=== PATIENT | female | born 1955 | race Caucasian/White ===

== ENCOUNTER → 2020-05-05 | Outpatient (CLI) | payer MEDICARE ==
[~2020-05-05] MED LIST: ATOR20TA58 PO; LEVO50TA5 PO; OMEP40CA45 PO; SERT25TA PO
== END | disposition home or self-care (01) ==
LOC: LAB 08:57
PROVIDERS: ATTEND Registered Nurse
DX: Z01.812 Encounter for preprocedural laboratory examination (principal); Z86.010 Personal history of colon polyps; Z20.828 Contact with and (suspected) exposure to other viral communicable diseases
CPT/HCPCS: U0003-CS

== ENCOUNTER → 2020-05-09 | Day surgery (SDC) | payer MEDICARE ==
[~2020-05-09] MED LIST changes: +IPRATRPIUM/ALBUTEROL 0.5/2.5MG 3 ML NEBU. NEB PRN; +IV RINGERS SOLUTION,LACTATED 1,000 ML IV SCH; +MIDAZOLAM HCL PF 2 MG/2 ML VIAL. IV ONE; +ONDANSETRON PF 4 MG/2 ML VIAL. IV PRN; +PROPOFOL 10,000 MCG/ML (20ML) VIAL IV ONE
[2020-05-09 09:48] VITALS: BP 132/72
--- NOTE | 2020-05-10 15:08 | PATHOLOGY ---
[facility] Accession Number: [id number] . 01 Material submitted: . colon - ASCENDING COLON POLYP. Modifiers: ascending . 02 Diagnosis: Colon biopsy, ascending colon polyp: - Hyperplastic polyp. ([facility] 05/10/2020) [facility] 05/10/2020 0954 Local . 02 Comment: There are no adenomatous changes or evidence of malignancy. ([facility] 05/10/2020) . 02 Electronically signed: . Parveen Isaacs MD, Pathologist NPI- [id number] . 01 Gross description: . Received in formalin labeled "Tyrone, Marjan, ascending colon polyp" is a bernal-brown soft tissue fragment measuring 0.6 x 0.3 x 0.1 cm. The specimen is submitted entirely in A1. ([facility]; 05/09/2020) [facility] 05/09/2020 1705 Local . 02 Pathologist provided ICD-10: K63.5 . 02 CPT . 371649 Specimen Comment: A courtesy copy of this report has been sent to [phone] Specimen Comment: [phone] Specimen Comment: Report sent to / DR ROSARIO Performed at: 01 [facility] [address], [place], [place] [id number] MD Glen Fuchs MD Phone: [phone] Performed at: 02 [facility] [place] [address] [place], [place] [id number] MD Parveen Isaacs MD Phone: [phone]
== END | disposition home or self-care (01) ==
LOC: SURG 07:37
PROVIDERS: ATTEND Emergency Medicine
DX: Z12.11 Encounter for screening for malignant neoplasm of colon (principal); K63.5 Polyp of colon; K57.30 Diverticulosis of large intestine without perforation or abscess without bleeding; K21.9 Gastro-esophageal reflux disease without esophagitis; E03.9 Hypothyroidism, unspecified; Z86.010 Personal history of colon polyps; Z91.040 Latex allergy status; Z88.1 Allergy status to other antibiotic agents; Z87.891 Personal history of nicotine dependence; Z90.710 Acquired absence of both cervix and uterus; Z98.890 Other specified postprocedural states; Z96.653 Presence of artificial knee joint, bilateral; Z79.899 Other long term (current) drug therapy
CPT/HCPCS: 45380; 88305; J2704; J7120